=== PATIENT | female | born 1990 | race Caucasian/White ===

== ENCOUNTER 2020-08-25 07:33 | Outpatient (REF) | payer OTHER, SELFPAY ==
[2020-08-25 07:56] LABS: COVID-19 Test Negative (Negative)
== END 2020-08-25 07:34 | disposition home or self-care (01) ==
LOC: HO.LAB 07:33
PROVIDERS: Visit Provider Internal Medicine
DX: Z20.828 Contact with and (suspected) exposure to other viral communicable diseases (principal)
CPT/HCPCS: 87635; C9803

== ENCOUNTER 2020-09-15 12:30 | Outpatient (REF) | payer OTHER, SELFPAY ==
[2020-09-15 15:05] LABS: Thyroid Stimulating Hormone 0.96 uIU/mL (0.32-4.0)
[2020-09-22 12:03] LABS: FT4 by Equilib. Dialysis 1.8 ng/dL (0.9-2.2)
== END 2020-09-15 12:31 | disposition home or self-care (01) ==
LOC: HO.WFDLDS 12:30
PROVIDERS: Visit Provider Internal Medicine Endocrinology, Diabetes & Metabolism
DX: E03.9 Hypothyroidism, unspecified (principal)
CPT/HCPCS: 84439; 84443

== ENCOUNTER 2020-09-17 12:48 | Outpatient (REF) | payer OTHER, SELFPAY ==
[2020-09-17 14:42] LABS: HCG Quantitative 1664 mIU/mL
== END 2020-09-17 12:49 | disposition home or self-care (01) ==
LOC: HO.10HDL 12:48
PROVIDERS: Absent Provider Student in an Organized Health Care Education/Training Program; Visit Provider Internal Medicine Endocrinology, Diabetes & Metabolism
DX: O09.299 Supervision of pregnancy with other poor reproductive or obstetric history, unspecified trimester (principal); Z32.01 Encounter for pregnancy test, result positive
CPT/HCPCS: 84702

== ENCOUNTER 2020-09-23 08:40 | Outpatient (REF) | payer OTHER, SELFPAY ==
[2020-09-28 22:23] LABS: FT4 by Equilib. Dialysis 1.8 ng/dL (0.9-2.2)
== END 2020-09-23 08:41 | disposition home or self-care (01) ==
LOC: HO.10HDL 08:40
PROVIDERS: Visit Provider Internal Medicine Endocrinology, Diabetes & Metabolism
DX: E03.9 Hypothyroidism, unspecified (principal)
CPT/HCPCS: 84439

== ENCOUNTER 2020-11-18 10:25 | Outpatient (REF) | payer OTHER, SELFPAY ==
[2020-11-18 14:47] LABS: Free T4 (Free Thyroxine) 1.39 ng/dL (0.71-1.85); Thyroid Stimulating Hormone 0.08 uIU/mL (0.32-4.0)
== END 2020-11-18 10:26 | disposition home or self-care (01) ==
LOC: HO.10HDL 10:25
PROVIDERS: Visit Provider Internal Medicine Endocrinology, Diabetes & Metabolism
DX: E03.9 Hypothyroidism, unspecified (principal)
CPT/HCPCS: 36415; 84439; 84443

== ENCOUNTER 2020-12-08 12:35 | Outpatient (REF) | payer OTHER, SELFPAY ==
[2020-12-08 14:35] LABS: HCG Quantitative 8 mIU/mL
== END 2020-12-08 12:36 | disposition home or self-care (01) ==
LOC: HO.10HDL 12:35
PROVIDERS: Visit Provider Student in an Organized Health Care Education/Training Program
DX: O03.9 Complete or unspecified spontaneous abortion without complication (principal); Z3A.00 Weeks of gestation of pregnancy not specified
CPT/HCPCS: 36415; 84702

== ENCOUNTER 2021-01-05 12:09 | Outpatient (REF) | payer OTHER, SELFPAY ==
[2021-01-05 14:29] LABS: HCG Quantitative < 2 mIU/mL
[2021-01-05 14:46] LABS: Free T4 (Free Thyroxine) 0.99 ng/dL (0.71-1.85); Thyroid Stimulating Hormone 0.41 uIU/mL (0.32-4.0)
== END 2021-01-05 12:10 | disposition home or self-care (01) ==
LOC: HO.10HDL 12:09
PROVIDERS: Absent Provider Student in an Organized Health Care Education/Training Program; Visit Provider Internal Medicine Endocrinology, Diabetes & Metabolism
DX: O03.9 Complete or unspecified spontaneous abortion without complication (principal); E03.9 Hypothyroidism, unspecified
CPT/HCPCS: 36415; 84439; 84443; 84702

== ENCOUNTER → 2021-01-13 07:29 | Outpatient (BNVA) | payer OTHER, SELFPAY | PROVIDERS: PCP Hospitalist; Visit Provider Internal Medicine Endocrinology, Diabetes & Metabolism ==

== ENCOUNTER 2021-03-09 12:18 | Outpatient (REF) | payer OTHER, SELFPAY ==
[2021-03-09 14:22] LABS: Thyroid Stimulating Hormone 0.32 uIU/mL (0.32-4.0)
== END 2021-03-09 12:19 | disposition home or self-care (01) ==
LOC: HO.10HDL 12:18
PROVIDERS: Visit Provider Internal Medicine Endocrinology, Diabetes & Metabolism
DX: E05.00 Thyrotoxicosis with diffuse goiter without thyrotoxic crisis or storm (principal)
CPT/HCPCS: 36415; 84439; 84443

== ENCOUNTER 2021-04-29 09:05 | Outpatient (REF) | payer OTHER, SELFPAY ==
[2021-04-29 11:03] LABS: Free T4 (Free Thyroxine) 1.38 ng/dL (0.71-1.85); Thyroid Stimulating Hormone 0.36 uIU/mL (0.32-4.0)
[2021-05-03 14:22] LABS: Thyrotropin Receptor Antibody <1.00 IU/L (<=2.00)
[2021-05-04 15:37] LABS: Thyroid Stimulating Immunoglob <89 % baseline (<140)
== END 2021-04-29 09:06 | disposition home or self-care (01) ==
LOC: HO.10HDL 09:05
PROVIDERS: Visit Provider Internal Medicine Endocrinology, Diabetes & Metabolism
DX: E05.00 Thyrotoxicosis with diffuse goiter without thyrotoxic crisis or storm (principal); E03.9 Hypothyroidism, unspecified
CPT/HCPCS: 36415; 83520; 84439; 84443; 84445

== ENCOUNTER → 2021-05-01 07:35 | Outpatient (BNVA) | payer OTHER, SELFPAY | PROVIDERS: PCP Family Medicine; Visit Provider Internal Medicine Endocrinology, Diabetes & Metabolism ==

== ENCOUNTER 2021-06-24 11:38 | Outpatient (REF) | payer OTHER, SELFPAY ==
[2021-06-24 13:34] LABS: MANUAL DIFF FLAG NO
[2021-06-24 13:47] LABS: Basophils Percent Auto 0.1 % (0-2); Eosinophils Percent Auto 0.1 % (0-4); Hemoglobin 13.9 g/dl (12.0-16.0); Imm Gran Abs Auto 0.02 X10*3/uL (0.00-0.03); Imm Gran Pct Auto 0.3 % (0.0-0.4); Lymphocytes Percent Auto 28.2 % (20-40); Mean Corpuscular HGB Conc 33.9 g/dl (31.0-35.0); Mean Corpuscular Volume 91.5 fL (80-98); Monocytes Absolute Auto 0.4 X10*3/uL (0.1-1.2); Monocytes Percent Auto 5.7 % (2-11); Neutrophils Absolute Auto 4.7 X10*3/uL (2.0-8.3); Neutrophils Percent Auto 65.6 % (45-73); Platelet Count 264 X10*3/uL (160-400); Red Blood Count 4.48 X10*6/uL (4.20-5.50); Red Cell Distribution Width 12.9 % (11.0-16.0); White Blood Count 7.2 X10*3/uL (4.8-10.8)
[2021-06-24 14:08] LABS: Alanine Aminotransferase 11 U/L (0-31); Albumin Level 4.5 g/dL (3.5-5.0); Alkaline Phosphatase 58 U/L (39-117); Anion Gap 12 (12-20); Aspartate Amino Transferase 17 U/L (5-31); Bilirubin Total 1.3 mg/dL (0.0-1.0); Blood Urea Nitrogen 10 mg/dL (9-16); Calcium 9.5 mg/dL (8.4-10.2); Carbon Dioxide 27 mmol/L (22-29); Chloride 105 mmol/L (96-108); Cholesterol 195 mg/dL; Estimated Glomerular Filt Rate > 60; Glucose Fasting 87 mg/dL (60-99); HDL Cholesterol 79 mg/dL; LDL Cholesterol Calculated 103 mg/dl; Potassium 4.5 mmol/L (3.3-5.1); Sodium 139 mmol/L (135-145); Total Protein 7.2 g/dL (6.5-8.0); Triglycerides 69 mg/dL
[2021-06-24 14:30] LABS: Free T4 (Free Thyroxine) 1.25 ng/dL (0.71-1.85); Thyroid Stimulating Hormone 0.68 uIU/mL (0.32-4.0)
[2021-06-24 14:31] LABS: TSH reflex Free T4 0.68 uIU/mL (0.32-4.0)
== END 2021-06-24 11:39 | disposition home or self-care (01) ==
LOC: HO.10HDL 11:38
PROVIDERS: Absent Provider Internal Medicine Endocrinology, Diabetes & Metabolism; Visit Provider Family Medicine
DX: Z00.00 Encounter for general adult medical examination without abnormal findings (principal); E05.00 Thyrotoxicosis with diffuse goiter without thyrotoxic crisis or storm
CPT/HCPCS: 36415; 80053; 80061; 84439; 84443; 85025

== ENCOUNTER 2022-02-03 11:29 | Outpatient (REF) | payer OTHER, SELFPAY ==
[2022-02-03 14:00] LABS: Free T4 (Free Thyroxine) 1.27 ng/dL (0.71-1.85); Thyroid Stimulating Hormone 0.31 uIU/mL (0.32-4.0)
== END 2022-02-03 11:30 | disposition home or self-care (01) ==
LOC: HO.10HDL 11:29
PROVIDERS: PCP Hospitalist; Visit Provider Internal Medicine
DX: E03.8 Other specified hypothyroidism (principal); E06.3 Autoimmune thyroiditis
CPT/HCPCS: 36415; 84439; 84443

== ENCOUNTER 2022-03-22 08:22 | Outpatient (REF) | payer OTHER, SELFPAY ==
[2022-03-22 11:07] LABS: MANUAL DIFF FLAG NO
[2022-03-22 11:17] LABS: Hematocrit 31.6 % (37.0-47.0); Hemoglobin 10.7 g/dl (12.0-16.0); Mean Corpuscular HGB Conc 33.9 g/dl (31.0-35.0); Mean Corpuscular Hemoglobin 30.8 pg (27.0-33.0); Mean Corpuscular Volume 91.1 fL (80.0-98.0); Mean Platelet Volume 9.6 fL (9.4-12.3); Neutrophils Percent Auto 67.5 % (45-73); Platelet Count 303 X10*3/uL (160-400); Red Blood Count 3.47 X10*6/uL (4.20-5.50); Red Cell Distribution Width 13.4 % (11.0-16.0); White Blood Count 7.3 X10*3/uL (4.8-10.8)
[2022-03-22 11:18] LABS: Basophils Percent Auto 0.3 % (0-2); Eosinophils Percent Auto 0.6 % (0-4); Imm Gran Abs Auto 0.07 X10*3/uL (0.00-0.03); Lymphocytes Absolute Auto 1.7 X10*3/uL (1.2-4.9); Monocytes Absolute Auto 0.5 X10*3/uL (0.1-1.2); Monocytes Percent Auto 6.6 % (2-11); Neutrophils Absolute Auto 4.9 x10*3/uL (2.0-8.3)
[2022-03-22 12:00] LABS: HBsAGNum1 0.25 S/CO (0.00-0.99); HIV AB/AG Nonreactive (Nonreactive); HIV Num 1 0.11 S/CO (0.00-0.99); Hepatitis B Surface Antigen Negative (Negative); ~HepC Num1 0.09 S/CO (0.00-0.79); ~Hepatitis C Antibody Nonreactive (Nonreactive)
[2022-03-22 12:17] LABS: Syphilis Screen Nonreactive (Nonreactive)
[2022-03-22 13:30] LABS: Thyroid Stimulating Hormone 0.48 uIU/mL (0.32-4.0)
== END 2022-03-22 08:23 | disposition home or self-care (01) ==
LOC: HO.WFDLDS 08:22
PROVIDERS: Internal Medicine; Visit Provider Student in an Organized Health Care Education/Training Program
DX: O99.281 Endocrine, nutritional and metabolic diseases complicating pregnancy, first trimester (principal); E06.3 Autoimmune thyroiditis; O99.820 Streptococcus B carrier state complicating pregnancy; Z3A.09 9 weeks gestation of pregnancy
CPT/HCPCS: 36415; 84436; 84443; 85025; 86780; 86803; 87086; 87147; 87340; 87389

== ENCOUNTER 2022-07-14 14:03 | Outpatient (REF) | payer OTHER, SELFPAY ==
[2022-07-14 16:08] LABS: Free T4 (Free Thyroxine) 1.03 ng/dL (0.71-1.85); Thyroid Stimulating Hormone 0.42 uIU/mL (0.32-4.0)
== END 2022-07-14 14:04 | disposition home or self-care (01) ==
LOC: HO.LAB 14:03
PROVIDERS: Absent Provider Internal Medicine Endocrinology, Diabetes & Metabolism; PCP Hospitalist; Visit Provider Family Medicine
DX: E03.8 Other specified hypothyroidism (principal); E06.3 Autoimmune thyroiditis
CPT/HCPCS: 36415; 84439; 84443

== ENCOUNTER 2022-09-07 08:31 | Outpatient (REF) | payer OTHER, SELFPAY ==
[2022-09-07 12:56] LABS: Free T4 (Free Thyroxine) 0.92 ng/dL (0.71-1.85); Thyroid Stimulating Hormone 0.75 uIU/mL (0.32-4.0)
== END 2022-09-07 08:32 | disposition home or self-care (01) ==
LOC: HO.WFDLDS 08:31
PROVIDERS: Visit Provider Internal Medicine Endocrinology, Diabetes & Metabolism
DX: E06.3 Autoimmune thyroiditis (principal); E03.8 Other specified hypothyroidism
CPT/HCPCS: 36415; 84439; 84443

== ENCOUNTER 2022-12-07 09:11 | Outpatient (REF) | payer OTHER, SELFPAY ==
[2022-12-07 11:49] LABS: Alanine Aminotransferase 18 U/L (0-31); Albumin Level 3.9 g/dL (3.5-5.0); Alkaline Phosphatase 71 U/L (39-117); Anion Gap 13 (12-20); Aspartate Amino Transferase 17 U/L (5-31); Blood Urea Nitrogen 12 mg/dL (9-16); Calcium 9.1 mg/dL (8.4-10.2); Carbon Dioxide 24 mmol/L (22-29); Chloride 107 mmol/L (96-108); Cholesterol 154 mg/dL; Estimated Glomerular Filt Rate > 60; Glucose Fasting 87 mg/dL (60-99); HDL Cholesterol 49 mg/dL; LDL Cholesterol Calculated 86 mg/dl; Sodium 140 mmol/L (135-145); Total Protein 6.3 g/dL (6.5-8.0); Triglycerides 96 mg/dL
[2022-12-07 12:52] LABS: Free T4 (Free Thyroxine) 1.95 ng/dL (0.71-1.85); Thyroid Stimulating Hormone < 0.01 uIU/mL (0.32-4.0)
[2022-12-08 13:28] LABS: Triiodothyronine T3 Total 203 ng/dL (76-181)
== END 2022-12-07 09:12 | disposition home or self-care (01) ==
LOC: HO.WFDLDS 09:11
PROVIDERS: Visit Provider Family Medicine
DX: Z00.00 Encounter for general adult medical examination without abnormal findings (principal); E03.9 Hypothyroidism, unspecified
CPT/HCPCS: 36415; 80053; 80061; 84439; 84443; 84480

== ENCOUNTER 2023-01-14 09:21 | Outpatient (REF) | payer OTHER, SELFPAY ==
[2023-01-14 12:58] LABS: TSH reflex Free T4 0.04 uIU/mL (0.32-4.0)
[2023-01-14 14:32] LABS: Free T4 (Free Thyroxine) 0.89 ng/dL (0.71-1.85)
== END 2023-01-14 09:22 | disposition home or self-care (01) ==
LOC: HO.WFDLDS 09:21
PROVIDERS: Visit Provider Hospitalist
DX: E05.00 Thyrotoxicosis with diffuse goiter without thyrotoxic crisis or storm (principal); E03.9 Hypothyroidism, unspecified
CPT/HCPCS: 36415; 84439; 84443

== ENCOUNTER 2023-01-25 11:59 | Outpatient (REF) | payer OTHER, SELFPAY ==
[2023-01-25 14:09] LABS: Hematocrit 39.6 % (37.0-47.0); Hemoglobin 13.4 g/dl (12.0-16.0); Mean Corpuscular HGB Conc 33.8 g/dl (31.0-35.0); Mean Corpuscular Hemoglobin 30.7 pg (27.0-33.0); Mean Corpuscular Volume 90.8 fL (80.0-98.0); Mean Platelet Volume 10.2 fL (9.4-12.3); Platelet Count 281 X10*3/uL (160-400); Red Blood Count 4.36 X10*6/uL (4.20-5.50); Red Cell Distribution Width 13.7 % (11.0-16.0); White Blood Count 5.7 X10*3/uL (4.8-10.8)
== END 2023-01-25 12:00 | disposition home or self-care (01) ==
LOC: HO.WFDLDS 11:59
PROVIDERS: Visit Provider Hospitalist
DX: R53.83 Other fatigue (principal)
CPT/HCPCS: 36415; 85027

== ENCOUNTER → 2023-03-04 11:31 | Outpatient (BNVA) | payer OTHER, SELFPAY | PROVIDERS: PCP Hospitalist; Visit Provider Internal Medicine | DX: M79.18 Myalgia, other site (principal); E03.9 Hypothyroidism, unspecified; E05.00 Thyrotoxicosis with diffuse goiter without thyrotoxic crisis or storm | CPT/HCPCS: 20553; J2795 ==

== ENCOUNTER 2023-08-01 15:53 | Outpatient (AMB) | payer OTHER, SELFPAY ==
--- NOTE | 2023-08-01 15:43 | A.OFFPC_ITS ---
Vital Signs 08/01/23 15:44 Height 5 ft 3 in Weight 153 lb BMI 27.1 BP 122/60 Blood Pressure Location Lt brachial Position Sitting Pulse 70 Pulse Source Pulse Oximeter Temp 98.3 F Temp Source Oral Pulse Oximetry (%) 99 Oxygen Delivery Method Room Air Intake Visit Reasons: pulsatile tinnitus Intake Note: Patient is here with pulsatile tinnitis and mainly left ear , but also right for 6 months. Allergies No Known Allergies Allergy (Verified 08/01/23 15:49) Tobacco use date assessed: 08/01/23 Dental Screening Dental Screen Date: 08/01/23 Did you have a dental visit in the last 12 months?: Yes Did you have a dental problem in the last 6 months where you did not have access to dental care?: No Was dental information given to patient?: Patient has dentist HPI pulsatile tinnitus HPI Details 33 y/o female presents today with compla ints of pulsatile tinnitus. Pt reports symptoms for months. She denies any headaches/visual disturbances. She denies any FHx of vascular malformations. COUNT INCLUDES THE [facility] Medical History Graves disease Hypothyroidism Surgical History History of dilation and curettage Family History Maternal Uncle Substance abuse Paternal Uncle Substance abuse Family/Other Substance abuse Social History Housing: House Patient Tobacco Use Status: Never used Tobacco e-Cigarette/Vaping Use: Never Used Current occupational status: employed Cognitive needs: No Hearing needs: No Vision needs: No Questionnaire Thrive Questionnaire Date Thrive assessed: 12/08/22 ZEYAD-7 AMB Questionnaire ZEYAD-7 Date ZEYAD - 7 assessed: 12/08/22 Source: Developed by Drs. Glynn Ramirez, Jennifer Decker, Duong Joshi and colleagues, with an educational chapis from [employer]. Review of Systems Const Denies chills, Denies fatigue, Denies fever(s), Denies headache(s) and Denies weakness ENT Denies dizziness and Denies headache(s) Card Denies dyspnea Resp Denies cough, Denies dyspnea, Denies wheezing and Denies other (shortness of breath) Musc Denies numbness and Denies tingling Neuro Denies dizziness, Denies headache(s), Denies numbness, Denies tingling and Denies weakness Psych Denies anxiety and Denies depression Endo Denies fatigue Aller/Immun Denies wheezing Physical exam (Primary Care) Vital Signs: Last Vital Signs Temp 98.3 F 08/01/23 15:44 Pulse 70 08/01/23 15:44 BP 122/60 08/01/23 15:44 Pulse Ox 99 08/01/23 15:44 Oxygen Delivery Method Room Air 08/01/23 15:44 BMI result Body Mass Index 27.1 Tobacco/Smoking Status: Tobacco use Status Tobacco use date assessed 08/01/23 08/01/23 15:54 Patient Tobacco Use Status Never used Tobacco 08/01/23 15:46 e-Cigarette/Vaping Use Never Used 08/01/23 15:54 Thrive Assessment: Date of Thrive Assessment Date Thrive assessed 12/08/22 08/01/23 15:46 Const General: well developed; No acute distress Nutritional Appearance: well nourished Orientation/consciousness: patient oriented x3 [facility] Head: Yes normocephalic and Yes atraumatic Eyes General: appearance normal, both eyes and all related structures Pupils: Equal, round and reactive pupils present EOM: EOMs intact bilaterally Resp Effort & Inspection: normal respiratory effort Neuro General: patient oriented x3 and gait normal Cranial nerves: Yes Equal, round and reactive pupils present Psych Affect: normal affect Assessment and Plan Assessment & Plan (1) Pulsatile tinnitus of both ears: Code(s): H93.A3 - Pulsatile tinnitus, bilateral Plan: Neurologically?intact.??No?headaches.??No?dizziness. Heart?exam?and?carotids?with?normal?auscultation Check?CTA?head?and?neck Check?labs She?will?make?an?appointment?for?shortly?after?her?scheduled?imaging. Advised?if?she?has?any?severe?he adaches?or?neurologic?changes,?she?should?go?to?the?ED?and?she?agrees. Orders: Orders Complete Blood Count Auto Diff Today H93.A3 - Pulsatile tinnitus, bilateral, Z00.00 - Encounter for general adult medical examination without abnormal findings Triiodothyronine T3 Total Today E03.8 - Other specified hypothyroidism, E03.9 - Hypothyroidism, unspecified, E06.3 - Autoimmune thyroiditis Comprehensive Met. Panel Today H93.A3 - Pulsatile tinnitus, bilateral Thyroid Stimulating Hormone Today E03.8 - Other specified hypothyroidism, E03.9 - Hypothyroidism, unspecified, E06.3 - Autoimmune thyroiditis Free T4 (Free Thyroxine) Today E03.8 - Other specified hypothyroidism, E03.9 - Hypothyroidism, unspecified, E06.3 - Autoimmune thyroiditis Erythrocyte Sedimentation Rate Today H93.A3 - Pulsatile tinnitus, bilateral CT angio head neck Today H93.A3 - Pulsatile tinnitus, bilateral Coding Level of Care Code Est Pt Level 3 (65106) Diagnoses Pulsatile tinnitus of both ears H93.A3
[2023-08-01 15:44] VITALS: BP 122/60; PULSE 70; TEMP 36.8; O2SAT 99; BMI 27.1
== END 2023-08-01 16:19 | disposition home or self-care (01) ==
PROVIDERS: PCP Hospitalist; Visit Provider Family Medicine
DX: H93.A3 Pulsatile tinnitus, bilateral (principal)
CPT/HCPCS: 99213

== ENCOUNTER 2023-08-03 08:03 | Outpatient (REF) | payer OTHER, SELFPAY ==
[2023-08-03 11:11] LABS: MANUAL DIFF FLAG NO
[2023-08-03 11:27] LABS: Basophils Percent Auto 0.4 % (0-2); Eosinophils Percent Auto 0.6 % (0-4); Hematocrit 38.4 % (37.0-47.0); Hemoglobin 13.1 g/dl (12.0-16.0); Imm Gran Abs Auto 0.01 X10*3/uL (0.00-0.03); Imm Gran Pct Auto 0.2 % (0.0-0.4); Lymphocytes Absolute Auto 2.2 X10*3/uL (1.2-4.9); Lymphocytes Percent Auto 41.2 % (20-40); Mean Corpuscular HGB Conc 34.1 g/dl (31.0-35.0); Mean Corpuscular Hemoglobin 30.9 pg (27.0-33.0); Mean Corpuscular Volume 90.6 fL (80.0-98.0); Mean Platelet Volume 10.2 fL (9.4-12.3); Monocytes Absolute Auto 0.4 X10*3/uL (0.1-1.2); Monocytes Percent Auto 6.9 % (2-11); Neutrophils Absolute Auto 2.7 x10*3/uL (2.0-8.3); Neutrophils Percent Auto 50.7 % (45-73); Platelet Count 241 X10*3/uL (160-400); Red Blood Count 4.24 X10*6/uL (4.20-5.50); Red Cell Distribution Width 12.9 % (11.0-16.0); White Blood Count 5.3 X10*3/uL (4.8-10.8)
[2023-08-03 11:41] LABS: Alanine Aminotransferase 9 U/L (0-31); Albumin Level 4.2 g/dL (3.5-5.0); Alkaline Phosphatase 55 U/L (39-117); Anion Gap 12 (12-20); Aspartate Amino Transferase 12 U/L (5-31); Bilirubin Total 1.1 mg/dL (0.0-1.0); Blood Urea Nitrogen 11 mg/dL (9-16); Calcium 9.2 mg/dL (8.4-10.2); Carbon Dioxide 22 mmol/L (22-29); Chloride 108 mmol/L (96-108); Estimated Glomerular Filt Rate > 60; Glucose Random 88 mg/dL (60-115); Potassium 3.9 mmol/L (3.3-5.1); Sodium 138 mmol/L (135-145); Total Protein 6.9 g/dL (6.5-8.0)
[2023-08-03 11:59] LABS: Free T4 (Free Thyroxine) 0.97 ng/dL (0.71-1.85); Thyroid Stimulating Hormone 1.22 uIU/mL (0.32-4.0)
[2023-08-03 12:20] LABS: Erythrocyte Sedimentation Rate 5 MM/HR (0-20)
[2023-08-04 08:20] LABS: Triiodothyronine T3 Total 95 ng/dL (76-181)
== END 2023-08-03 08:04 | disposition home or self-care (01) ==
LOC: HO.WFDLDS 08:03
PROVIDERS: Visit Provider Family Medicine
DX: Z00.00 Encounter for general adult medical examination without abnormal findings (principal); H93.A3 Pulsatile tinnitus, bilateral; E03.9 Hypothyroidism, unspecified; E03.8 Other specified hypothyroidism; E06.3 Autoimmune thyroiditis
CPT/HCPCS: 36415; 80053; 84439; 84443; 84480; 85025; 85652

== ENCOUNTER 2023-08-05 10:20 | Outpatient (REF) | payer OTHER, SELFPAY ==
--- NOTE | ~2023-08-05 | CT_ITS ---
EXAMINATION: CT ANGIOGRAM NECK WITH CONTRAST CT ANGIOGRAM BRAIN WITH CONTRAST CLINICAL INFORMATION: Pulsatile tinnitus, bilateral. COMPARISON: None. TECHNIQUE: Test bolus sequences followed by intravenous administration 70 mL of Omnipaque 350. Helical imaging was performed in the axial plane from the thoracic inlet to the skull vertex. Delayed postcontrast imaging of the head was also performed. The data was processed at the applied technologist workstation for generation of MIP sequences. Angled MIPs and volume rendered reformatted images were also generated at an offline 3D workstation. Stenoses are assessed in accordance with NASCET criteria unless otherwise indicated. This CT examination was performed using dose optimization techniques as appropriate, variously including the following: *Automated exposure control *Adjustment of mA and/or kV according to patient size (this includes techniques or standardized protocols for targeted exams where dose is matched to indication/reason for exam; i.e. extremities or head) *Use of iterative reconstruction technique DLP: 2466 mGy-cm FINDINGS: Head CT: There is no intracranial hemorrhage, large acute infarction, or mass lesion. The ventricles are normal in size and configuration without evidence of hydrocephalus. No abnormal enhancement is seen. The dural venous sinuses are normally opacified. The extracranial structures are within normal limits. The bilateral mastoids and middle ear cavities are clear. Neck CTA: There is a normal aortic arch with no significant stenosis of the great vessel origins. The common and internal carotid arteries are normal in course and caliber. Both vertebral arteries are widely patent throughout their extracranial cervical course. Head CTA: No intracranial aneurysm is seen. The intracranial internal carotid arteries appear normal. The anterior cerebral artery, anterior communicating artery, and middle cerebral arteries appear normal. The intradural vertebral arteries and basilar artery appear normal. The posterior cerebral arteries appear normal. The posterior communicating arteries are atretic. No enlarged arteries are seen. There are no enlarged collaterals within the scalp. Non-vascular findings: The lung apices are clear. Cervical soft tissues are unremarkable. The spine is intact without significant abnormality. CT/CT angio head neck IMPRESSION: No acute intracranial abnormality. The major head and neck arteries are patent without stenosis or aneurysm. No vascular malformation identified.
[2023-08-05] MEDS: iohexoL 350 MG/ML 100 ML INFUS..BTL IV (11:32)
== END 2023-08-05 10:21 | disposition home or self-care (01) ==
LOC: HO.CT 10:20
PROVIDERS: PCP Hospitalist; Visit Provider Family Medicine
DX: H93.A3 Pulsatile tinnitus, bilateral (principal)
CPT/HCPCS: 70496; 70498; Q9967

== ENCOUNTER 2023-09-19 14:00 | Outpatient (REF) | payer OTHER, SELFPAY ==
--- NOTE | ~2023-09-19 | MM_ITS ---
EXAMINATION: MM DIAGNOSTIC DIGITAL BREAST TOMOSYNTHESIS, BILATERAL US BREAST LIMITED, LEFT MAMMOGRAPHY: CLINICAL INFORMATION: Palpable mass left breast upper outer quadrant, 33-year-old female baseline exam. COMPARISON: Mammography: None. Baseline exam. TECHNIQUE: Digital breast tomosynthesis is performed in both the craniocaudal and mediolateral oblique views along with computer-aided detection (CAD). Synthesized 2D images are generated from the tomosynthesis. FINDINGS: There are scattered areas of fibroglandular density (ACR BI-RADS breast composition Category b). There are no suspicious masses, suspicious grouped calcifications, or areas of architectural distortion in either breast. The parenchymal pattern is stable from prior exams. The region of palpable concern in the left breast upper outer quadrant has been marked by the technologist and shows no mammographic correlate. ULTRASOUND: CLINICAL INFORMATION: Palpable mass left breast upper outer quadrant, 33-year-old female baseline exam. COMPARISON: None TECHNIQUE: Targeted sonographic evaluation was performed using a high frequency linear transducer. Attention was given to the 2:00 axis left breast, in the region of palpable concern. Selected archived documentation. FINDINGS: LEFT BREAST: There is a mixture of fatty and fibroglandular tissue. No suspicious mass is seen. There is no pathologic acoustic shadowing. There is no abnormal lymph node or cystic abnormality. There is no sonographic correlate to the focus of palpable concern. MM/MM tomosynthesis diagnostic BI IMPRESSION: There is no evidence of malignancy in either breast. Palpable focus in the left breast upper outer quadrant, 2:00 axis, shows no sonographic or mammographic correlate. Recommend clinical management of the patient's complaint. Otherwise, recommend resuming routine screening mammography at age 39. OVERALL ASSESSMENT: Mammography: BI-RADS 1 - Negative Ultrasound: BI-RADS 1 - Negative RECOMMENDATION: 1. Patient should be managed based on the clinical impression. Decision to proceed with biopsy should be based on clinical grounds and degree of clinical concern. 2. Otherwise, routine annual screening mammography at age 39. This patient's information was entered into a reminder system with a target due date for their next mammogram.
== END 2023-09-19 14:01 | disposition home or self-care (01) ==
LOC: HO.MAMMO 14:00
PROVIDERS: PCP Family Medicine; Visit Provider Family Medicine
DX: N63.21 Unspecified lump in the left breast, upper outer quadrant (principal)
CPT/HCPCS: 76642; 77062; 77066

== ENCOUNTER → 2023-09-19 14:00 | Outpatient (BNV) | payer OTHER, SELFPAY | PROVIDERS: PCP Family Medicine; Visit Provider Radiology Diagnostic Radiology | DX: N63.21 Unspecified lump in the left breast, upper outer quadrant (principal) | CPT/HCPCS: 76642; 77062; 77066 ==

== ENCOUNTER 2024-10-25 08:52 | Outpatient (AMB) | payer OTHER, SELFPAY ==
--- NOTE | 2024-10-25 08:57 | A.OFFPC_ITS ---
Vital Signs 10/25/24 09:01 Height 5 ft Weight 140 lb 8 oz BMI 27.4 BP 112/58 L Blood Pressure Location Lt brachial Position Sitting Pulse 63 Pulse Source Auscultation Pulse Oximetry (%) 96 Intake Visit Reasons: Review meds Allergies No Known Allergies Allergy (Verified 10/25/24 09:02) Medication List - Last Reconciled 10/25/24 by Jayshree Seymour, DIGITAL PROJECT COORDINATOR-BC levothyroxine 75 mcg PO DAILY Tobacco use date assessed: 10/25/24 Dental Screening Dental Screen Date: 10/25/24 Did you have a dental visit in the last 12 months?: Yes Did you have a dental problem in the last 6 months where you did not have access to dental care?: No Was dental information given to patient?: Patient has dentist HPI HPI Comments History of Present Illness Details 34 y/o F with 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 Health Maintenance: Pap w/ outside provider High risk for cancer: Negative genetic testing, Recommend clinical breast exam q6mo, Annual mammo starting at age 29, MRI of breast annually starting at age 29 Mammo 09/2023 with US of L breast complete. Due for repeat, she will schedule. Flu 2023 Tdap 2021 Specialists: Endo cleared from f/u Derm screening only Cards every other year, echo q5 years, last 2021 [facility] Neuro-Ophthalmology Need for pre-dental antibiotic prophylaxis The patient is a 34-year-old female presenting to [facility] care and for a CPE. with concerns related to thyroid management. She has a history of hypothyroidism and is currently taking levothyroxine at a dosage of 75 mcg. Over the past year, she has noticed symptoms such as dry skin and hair changes, prompting concern for thyroid management optimization. She also reports experiencing pulsatile tinnitus, initially unilateral but now bilateral, noticeable particularly when lying down or during exercise. The patient reports having normal CT results for this condition last July, although she has not followed up since. Despite no definitive cause being identified during previous evaluations, the patient has occasionally experienced pressure behind her eyes, episodic headaches, and lightheadedness upon positional changes. The patient has a history of mitral valve prolapse, which causes occasional dizziness. Last echocardiogram was in 2021. She experiences limb discomfort requiring ongoing physical therapy and reports stiff joints and swelling, more prominently after alcohol consumption. States that her hands and feet are affected mostly. Specifically on the left foot on the top of her foot in between the bones as a tender area. Reports that she can not walk barefoot around the house or this increases the pain. She is currently in physical therapy for scoliosis with right shoulder pain and upper back stiffness. She had a rheumatologic workup done in the past when she was trying to conceive to multiple miscarriages. She reports a negative workup at that time. She has a family history of uterine and breast cancer and has been following recommendations for early surveillance - Reduced physical activity recently, re starting exercise to manage scoliosis and overall health. Review of Systems - ENT: Reports pulsatile tinnitus. She has not followed up with an ENT. She reports that her hearing is normal. - Neurological: Reports pressure behind the eyes, episodic headaches. - Musculoskeletal: Reports joint stiffne ss, occasional swelling, and foot discomfort. Exam: General: Well developed, well nourished, in no acute distress. Appears stated age. Head: Normocephalic, atraumatic. Eyes: Jm Daniele pupil. Conjunctivae are clear. Vision grossly normal. Ears: TMs clear AU, EACS WNL, hearing wNL Nose: Patent, without discharge. Mouth: There are no ulcers or lesions noted. No inflammation, no post nasal drip, no plaques nor exudates. Neck: Supple, no adenopathy or thyromegaly. Lungs: Clear to auscultation bilaterally. No rales, rhonchi or wheeze noted. Good air flow in all best. Heart: Regular rate and rhythm. No click, rubs or gallops are noted. mid systolic click with 2/6 murmur at apex Abdomen: Bowel sounds present in all quadrants. The abdomen is soft, nontender, with no masses or organomegaly noted. No hernias are noted. Musculoskeletal: Left foot pain w palpation dorsum of foot inbetween 3 & 4 metatarsal, otherwise Joints are nontender, without swelling, redness, or effusions. Range of motion is observed to be normal. Pulses: Peripheral pulses are equal and palpable bilaterally. Extremities: No clubbing, cyanosis nor edema is noted. Neurologic: Gait and station normal. Cranial Nerves 2-12 intact. Motor strength grossly symmetrical and intact. No sensory loss. Balance normal. Skin: No rashes, ulcers, or lesions noted. Turgor is good. Skin color is good. Hair and nails are without abnormalities. Psych: Normal eye contact, affect and mood appropriate, and normal interactions. Patient is alert and appropriate to context. Results - CT scan of head and neck conducted 2022 showed no abnormalities. Labs from 08/05/2023 reviewed Labs from today are normal, Lyme titer is pending. Plan - Repeat thyroid function tests to asses s current levothyroxine dose adequacy. - Obtain MRI/MRA for a comprehensive ass essment of pulsatile tinnitus. - Neurology consultation recommended for further evaluation of tinnitus and headaches. I will wait for the results of the imaging to come back before placing a referral. She may need neuroendocrine. - Continue follow-up with cardiology for mitral valve prolapse surveillance. - Continue physical therapy for scoliosi s and manage joint stiffness. - Monitor for potential autoimmune condi tions considering joint symptoms and family history. - Schedule mammogram in accordance with surveillance recommendations. - Monitor for any changes in joint or ca rdiac symptoms and report them during follow-up visits. - Maintain regular health check-ups and timely surveillance appointments due to familial cancer history. Continue levothyroxine dose Patient was informed and verbally consented to the use of an ambient scribe for clinic note documentation during this visit. Discussion Notes During the visit, I discussed the management of the patient's hypothyroidism, emphasizing the importance of thyroid function testing to ensure optimal levothyroxine dosing. We reviewed the persistence of her pulsatile tinnitus and decided on further imaging with an MRI/MRA for a thorough evaluation. I advised a neurology consult to explore possible causes for her symptoms, understanding the complexity of tinnitus presentations. Regarding her joint stiffness and familial cancer history, I discussed the relevance of ongoing monitoring and potential autoimmune screening given her thyroiditis history. The necessity for continued adherence to established cancer surveillance protocols was reinforced, and I recommended her to follow through on scheduling her mammogram. Plans for her physical therapy regimen were affirmed to address musculoskeletal discomfort and maintain functional capacity. This note is constructed using voice recognition software. While every effort has been made to ensure accuracy in email developer, still errors may have been included Sometimes, these errors may affect the content or meaning of the given sentence . An additional 30 minutes was spent addressing the problem(s) noted at todays visit. This includes time spent before the visit reviewing the chart, time spent during the visit, and time spent after the visit on documentation [facility] Medical History Graves disease Hypothyroidism Surgical History History of dilation and curettage Family History Maternal Uncle Substance abuse Paternal Uncle Substance abuse Family/Other Substance abuse Social History Housing: House Patient Tobacco Use Status: Never used Tobacco e-Cigarette/Vaping Use: Never Used Current occupational status: employed Cognitive needs: No Hearing needs: No Vision needs: No Questionnaire PHQ-9 Over the last 2 weeks, how often have you been bothered by any of the following problems? 1. Little interest or pleasure in doing things: not at all 2. Feeling down, depressed, or hopeless: not at all 3. Trouble falling or staying asleep, or sleeping too much: not at all 4. Feeling tired or having little energy: not at all 5. Poor appetite or overeating: not at all 6. Feeling bad about yourself - or that you are a failure or have let yourself or your family down: not at all 7. Trouble concentrating on things, such as reading the newspaper or watching television: not at all 8. Moving or speaking so slowly that other people could have noticed. Or the opposite - being so fidgety or restless that you have been moving around a lot more than usual: not at all 9. Thoughts that you would be better off or of hurting yourself in some wa y: not at all Total score: 0 Depression Screening Interpretation: Negative Depression Screening Done: Yes 65218 - PHQ-9 Billing: Yes Source: Developed by Drs. Glynn Ramirez, Jennifer Decker, Duong Joshi and colleagues, with an educational chapis from [employer]. Thrive Questionnaire Date Thrive assessed: 10/25/24 I am a: Patient What is your living situation today?: I have a steady place to live Within the past 12 months, did the food you bought not last and you didn't have the money to get more?: Never true Within the past 12 months, did you worry whether your food would run out before you got money to buy more?: Never true Do you have trouble paying for medicines?: No Do you have trouble getting transportation to medical appointments?: No Do you have trouble paying your heating and electricity bill?: No Do you have trouble taking care of your child, family member or friend?: No Do you have trouble with day-to-day activities such as bathing, preparing meals, shopping, managing finances, etc.?: No Are you currently unemployed and looking for a job?: No Are you interested in more education?: No Please select the resources that you would like help with: None Currently or been in a relationship where the following occur: No concerns reported THRIVE Score: 0 AUDIT C Alcohol Use Questionnaire (AUDIT-C) 1. How often do you have a drink containing alcohol?: 2-4 times a month 2. How many drinks containing alcohol do you have on a typical day when you are drinking?: 1 or 2 3. How often do you have six or more drinks on one occasion?: Never Total Score: 2 Score Reviewed/Action Taken: Yes ZEYAD-7 AMB Questionnaire ZEYAD-7 Date ZEYAD - 7 assessed: 10/25/24 Feeling nervous, anxious, or on edge: 0 = Not at all Not being able to stop or control worryin = Not at all Worrying too much about different things: 0 = Not at all Trouble relaxin = Not at all Being so restless that it is hard to sit still: 0 = Not at all Becoming easily annoyed or irritable: 0 = Not at all Feeling afraid as if something awful might happen: 0 = Not at all Total ZEYAD-7 score (0-4 normal; 5-9 mild; 10-14 moderate; 15-21 severe): 0 Source: Developed by Drs. Glynn Ramirez, Jennifer Decker, Duong Joshi and colleagues, with an educational chapis from [employer]. Physical exam (Primary Care) Vital Signs: Last Vital Signs Pulse 63 10/25/24 09:01 BP 112/58 L 10/25/24 09:01 Pulse Ox 96 10/25/24 09:01 BMI result Body Mass Index 27.4 Tobacco/Smoking Status: Tobacco use Status Tobacco use date assessed 08/01/23 10/25/24 09:00 Patient Tobacco Use Status Never used Tobacco 10/25/24 09:00 e-Cigarette/Vaping Use Never Used 10/25/24 09:00 PHQ-9: PHQ-9 Score PHQ-9: Total score 0 10/25/24 15:06 Depression Screening Interpretation: Negative Thrive Assessment: Date of Thrive Assessment Date Thrive assessed 10/25/24 10/25/24 09:07 Currently or been in a relationship where the following occur: No concerns reported Coding Level of Care Code Est Pt Level 4 (39731) Est Pt Prev Care 18-39y(42411) Diagnoses Encounter for general adult medical examination with abnormal findings Z00.01 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; E06.3 Hypothyroidism type: due to Mari's thyroiditis Pulsatile tinnitus of both ears H93.A3 Arthralgia of left foot M25.572 Joint pain location: foot Laterality: left Nonintractable headache, unspecified chronicity pattern, unspecified headache type R51.9 Headache type: unspecified Headache chronicity pattern: unspecified pattern Intractability: not intractable Dizziness R42 Eye pressure H57.9 Family history of breast cancer Z80.3 Family history of uterine cancer Z80.49 Additional Codes PHQ-9 - 71304 - PHQ-9 Billing: Yes ([id number]) Assessment & Plan Assessment & Plan (1) Encounter for general adult medical examination with abnormal findings: Code(s): Z00.01 - Encounter for general adult medical examination with abnormal findings (2) Hypothyroidism: Code(s): E03.9 - Hypothyroidism, unspecified Category: Medical Qualifiers: Hypothyroidism type: due to Mari's thyroiditis Qualified Code(s): E03.8 - Other specified hypothyroidism; E06.3 - Autoimmune thyroiditis (3) Pulsatile tinnitus of both ears: Code(s): H93.A3 - Pulsatile tinnitus, bilateral Category: Medical (4) Joint pain: Code(s): M25.50 - Pain in unspecified joint Category: Medical Qualifiers: Joint pain location: foot Laterality: left Qualified Code(s): M25.572 - Pain in left ankle and joints of left foot (5) Headache: Code(s): R51.9 - Headache, unspecified Category: Medical Qualifiers: Headache type: unspecified Headache chronicity pattern: unspecified pattern Intractability: not intractable Qualified Code(s): R51.9 - Headache, unspecified (6) Dizziness: Code(s): R42 - Dizziness and giddiness Category: Medical (7) Eye pressure: Code(s): H57.9 - Unspecified disorder of eye and adnexa Category: Medical (8) Family history of breast cancer: Code(s): Z80.3 - Family history of malignant neoplasm of breast Category: Medical (9) Family history of uterine cancer: Code(s): Z80.49 - Family history of malignant neoplasm of other genital organs Category: Medical Plan . Orders: Orders Hemoglobin A1c Today E03.8 - Other specified hypothyroidism, E06.3 - Autoimmune thyroiditis, H93.A3 - Pulsatile tinnitus, bilateral, M25.50 - Pain in unspecified joint Lipid Panel Today E03.8 - Other specified hypothyroidism, E06.3 - Autoimmune thyroiditis, H93.A3 - Pulsatile tinnitus, bilateral, M25.50 - Pain in unspecified joint Lyme IgG/IgM w/reflex to WB Today E03.8 - Other specified hypothyroidism, E06.3 - Autoimmune thyroiditis, H93.A3 - Pulsatile tinnitus, bilateral, M25.50 - Pain in unspecified joint Erythrocyte Sedimentation Rate Today E03.8 - Other specified hypothyroidism, E06.3 - Autoimmune thyroiditis, H93.A3 - Pulsatile tinnitus, bilateral, M25.50 - Pain in unspecified joint MR head/brain wo/w con Today H57.9 - Unspecified disorder of eye and adnexa, H93.A3 - Pulsatile tinnitus, bilateral, R42 - Dizziness and giddiness, R51.9 - Headache, unspecified Complete Blood Count no Diff Today E03.8 - Other specified hypothyroidism, E06.3 - Autoimmune thyroiditis, H93.A3 - Pulsatile tinnitus, bilateral, M25.50 - Pain in unspecified joint Comprehensive [place]. Panel Fast Today E03.8 - Other specified hypothyroidism, E06.3 - Autoimmune thyroiditis, H93.A3 - Pulsatile tinnitus, bilateral, M25.50 - Pain in unspecified joint Microalbumin, Random (w Creat) Today E03.8 - Other specified hypothyroidism, E06.3 - Autoimmune thyroiditis, H93.A3 - Pulsatile tinnitus, bilateral, M25.50 - Pain in unspecified joint TSH reflex Free T4 Today E03.8 - Other specified hypothyroidism, E06.3 - Autoimmune thyroiditis, H93.A3 - Pulsatile tinnitus, bilateral, M25.50 - Pain in unspecified joint Vitamin B12 and Folate Today E03.8 - Other specified hypothyroidism, E06.3 - Autoimmune thyroiditis, H93.A3 - Pulsatile tinnitus, bilateral, M25.50 - Pain in unspecified joint Vitamin D 25-OH Total Today E03.8 - Other specified hypothyroidism, E06.3 - Autoimmune thyroiditis, H93.A3 - Pulsatile tinnitus, bilateral, M25.50 - Pain in unspecified joint CRP High Sensitivity Today E03.8 - Other specified hypothyroidism, E06.3 - Autoimmune thyroiditis, H93.A3 - Pulsatile tinnitus, bilateral, M25.50 - Pain in unspecified joint Rheumatoid Factor Today E03.8 - Other specified hypothyroidism, E06.3 - Autoimmune thyroiditis, H93.A3 - Pulsatile tinnitus, bilateral, M25.50 - Pain in unspecified joint MR angio head wo con Today H57.9 - Unspecified disorder of eye and adnexa, H93.A3 - Pulsatile tinnitus, bilateral, R42 - Dizziness and giddiness, R51.9 - Headache, unspecified
[2024-10-25 09:01] VITALS: BP 112/58; PULSE 63; O2SAT 96; BMI 27.4
== END 2024-10-25 09:25 | disposition home or self-care (01) ==
PROVIDERS: PCP Family Medicine; Visit Provider Nurse Practitioner Family
DX: Z00.00 Encounter for general adult medical examination without abnormal findings (principal); E03.8 Other specified hypothyroidism; E06.3 Autoimmune thyroiditis; H93.A3 Pulsatile tinnitus, bilateral; M25.572 Pain in left ankle and joints of left foot; R51.9 Headache, unspecified; R42 Dizziness and giddiness; H57.9 Unspecified disorder of eye and adnexa; Z80.3 Family history of malignant neoplasm of breast; Z80.49 Family history of malignant neoplasm of other genital organs

== ENCOUNTER → 2024-10-25 08:52 | Outpatient (BNVA) | payer OTHER, SELFPAY | PROVIDERS: PCP Family Medicine; Visit Provider Nurse Practitioner Family | DX: Z00.01 Encounter for general adult medical examination with abnormal findings (principal); E06.3 Autoimmune thyroiditis; E03.8 Other specified hypothyroidism; H93.A3 Pulsatile tinnitus, bilateral; M25.572 Pain in left ankle and joints of left foot; R51.9 Headache, unspecified; R42 Dizziness and giddiness; H57.9 Unspecified disorder of eye and adnexa; Z79.899 Other long term (current) drug therapy; Z80.3 Family history of malignant neoplasm of breast; Z80.49 Family history of malignant neoplasm of other genital organs | CPT/HCPCS: 96127 ==

== ENCOUNTER 2024-10-25 09:37 | Outpatient (REF) | payer OTHER, SELFPAY ==
[2024-10-25 11:32] LABS: Hematocrit 37.7 % (37.0-47.0); Hemoglobin 12.6 g/dl (12.0-16.0); Mean Corpuscular HGB Conc 33.4 g/dl (31.0-35.0); Mean Corpuscular Volume 92.9 fL (80.0-98.0); Mean Platelet Volume 10.1 fL (9.4-12.3); Platelet Count 244 X10*3/uL (160-400); Red Blood Count 4.06 X10*6/uL (4.20-5.50); Red Cell Distribution Width 13.4 % (11.0-16.0); White Blood Count 4.7 X10*3/uL (4.8-10.8)
[2024-10-25 11:42] LABS: Estimated Average Glucose 94 mg/dL; Hemoglobin A1C 99.1872 umol/L; Hemoglobin A1c % 4.9 % (<6.0); Total Hemoglobin (HGBA1C) 3298.8242 umol/L
[2024-10-25 11:47] LABS: Rheumatoid Factor < 13.0 IU/mL (<15.0)
[2024-10-25 11:53] LABS: Alanine Aminotransferase 22 U/L (0-31); Albumin Level 4.2 g/dL (3.5-5.0); Anion Gap 9 (12-20); Aspartate Amino Transferase 18 U/L (5-31); Bilirubin Total 1.1 mg/dL (0.0-1.0); Blood Urea Nitrogen 10 mg/dL (9-16); Calcium 9.1 mg/dL (8.4-10.2); Carbon Dioxide 26 mmol/L (22-29); Chloride 109 mmol/L (96-108); Cholesterol 150 mg/dL (<200); Estimated Glomerular Filt Rate > 60; Glucose Fasting 87 mg/dL (60-99); HDL Cholesterol 67 mg/dL (>40); LDL Cholesterol Calculated 72 mg/dL (<100); Potassium 4.3 mmol/L (3.3-5.1); Sodium 140 mmol/L (135-145); Total Protein 6.8 g/dL (6.5-8.0); Triglycerides 57 mg/dL (<150)
[2024-10-25 12:09] LABS: TSH reflex Free T4 1.71 uIU/mL (0.32-4.0)
[2024-10-25 12:16] LABS: Erythrocyte Sedimentation Rate 5 MM/HR (0-20)
[2024-10-25 12:17] LABS: Folate 11.9 ng/mL (> or = 4.0); Vitamin B12 305 pg/mL (200-900)
[2024-10-25 12:22] LABS: Creatinine Urine 114.58 mg/dL; Microalbumin Urine < 5.0 mg/L
[2024-10-25 12:29] LABS: Alkaline Phosphatase 42 U/L (39-117)
[2024-10-26 18:13] LABS: Lyme Abs Screen <0.90 index
[2024-10-26 18:18] LABS: CRP High Sensitivity 0.4 mg/L
== END 2024-10-25 09:38 | disposition home or self-care (01) ==
LOC: HO.WFDLDS 09:37
PROVIDERS: Visit Provider Nurse Practitioner Family
DX: Z13.1 Encounter for screening for diabetes mellitus (principal); E03.8 Other specified hypothyroidism; E06.3 Autoimmune thyroiditis; H93.A3 Pulsatile tinnitus, bilateral; M25.50 Pain in unspecified joint
CPT/HCPCS: 36415; 80053; 80061; 82043; 82306; 82570; 82607; 82746; 83036; 84443; 85027; 85652; 86141; 86431; 86617; 86618

== ENCOUNTER → 2024-11-02 07:38 | Outpatient (BNV) | payer OTHER, SELFPAY | PROVIDERS: PCP Nurse Practitioner Family; Visit Provider Specialist | DX: H93.A3 Pulsatile tinnitus, bilateral (principal) | CPT/HCPCS: 70553 ==

== ENCOUNTER 2024-11-02 08:23 | Outpatient (REF) | payer OTHER, SELFPAY ==
--- NOTE | ~2024-11-02 | MR_ITS ---
CLINICAL HISTORY: H93.A3 - Pulsatile tinnitus, bilateral MR Angiography head without gadolinium Comparison: None Findings Intracranial internal carotid arteries are normal. Vertebrobasilar system intact. Anterior, middle, and posterior cerebral arteries are normal. Visualized cerebellar arteries are patent. IMPRESSION: Normal MRA brain This document has been electronically signed by: Scotty Wiley MD on 11/03/2024 08:23:55
--- NOTE | ~2024-11-02 | MR_ITS ---
CLINICAL HISTORY: H93.A3 - Pulsatile tinnitus, bilateral MR Brain with and without gadolinium Comparison: None Findings: No restricted diffusion. No intracranial mass or hemorrhage. Structures in the cerebellar pontine angles and IAC's are symmetric and normal in appearance. There are no prominent vascular structures. There are no areas of abnormal enhancement. No midline shift. No hydrocephalus. Vascular flow voids are intact. Orbital contents are unremarkable. The sinuses and mastoid air cells are clear. No focal bone lesion. IMPRESSION: Unremarkable exam. This document has been electronically signed by: Scotty Wiley MD on 11/03/2024 08:43:07
[2024-11-02] MEDS: gadobutroL 7.5 ML VIAL IVPUSH (09:51)
== END 2024-11-02 08:24 | disposition home or self-care (01) ==
LOC: HO.MRI 08:23
PROVIDERS: PCP Nurse Practitioner Family; Visit Provider Nurse Practitioner Family
DX: H93.A3 Pulsatile tinnitus, bilateral (principal); R51.9 Headache, unspecified; H57.9 Unspecified disorder of eye and adnexa; R42 Dizziness and giddiness
CPT/HCPCS: 70544; 70553; A9585

== ENCOUNTER 2024-11-08 14:46 | Outpatient (REF) | payer OTHER, SELFPAY | END 2024-11-08 14:47 | disposition home or self-care (01) | LOC: HO.MAMMO 14:46 | PROVIDERS: PCP Nurse Practitioner Family; Visit Provider Nurse Practitioner Family | DX: Z12.31 Encounter for screening mammogram for malignant neoplasm of breast (principal) | CPT/HCPCS: 77063; 77067 ==

== ENCOUNTER → 2024-11-08 15:00 | Outpatient (BNV) | payer OTHER, SELFPAY | PROVIDERS: PCP Nurse Practitioner Family; Visit Provider Internal Medicine | DX: Z12.31 Encounter for screening mammogram for malignant neoplasm of breast (principal) | CPT/HCPCS: 77063; 77067 ==

== ENCOUNTER 2024-12-18 08:00 | Outpatient (RCR) | payer OTHER, SELFPAY ==
--- NOTE | 2024-09-27 16:01 | MHC.PT.EP ---
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 Brooks for treatment of M542.2 Cervicalgia, G89.29 Other chronic pain, Chronic neck pain signed by Eddi Brooks 08/24/24. Pt exhibits Johny's test with (+) R rib hump, reports history of scolosis, per report >40 degree FIELDS angle (was braced in her youth). 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 She reports intolerance for prolonged computer work and has pain with prolonged sitting. Pt would benefit would benefit from attending PT once a week x 4-6 weeks to address impairments, implement HEP, and restore functional mobility tolerance to resume PLOF. Excellent rehab prognosis. Post eval, we discussed stretching program including R upper trap, R levator scap (will add scalene next visit), threading the needle, seated trunk flexion child pose stretch, SL open books (on L side to address R side tightness) was shown some self care STM re: use of theracane, self care potential re: use of TENS (will readdress more self care should patient obtain for home). Trial of ROCKTAPE applied for aide of neck pain /R periscap sx . Applied with R GH neutral, scap retraction/shoulder extension. Handout later sent via [employer] text to Aziza directly as handout was not given to her at time of leaving the office (will issue next session). Positive response verbalized post eval/instruction. Frequency and Duration: The patient will be seen 1x/week x 4-6 weeks Short Term Goals: 1. Initiate self care for neck pain/posture support. (IR: no current program in place for sx). 2. Pt will reduce neck pain by 25% for work/life balance. (IR: 6/10 at worst). 3. Improve strength by R ER RTC L>R. (IR: 4-/5). 4. Improve strength middle >lower trap 4/5 R>L side. (IR: 3/5 B, more sx on R). Group Home Goals: 1. I HEP with self care management. (IR: no program in place). 2. Strength middle<>lower trap 5/5 B. 3. Flexibility program MOD I. (IR: no program in place). 4. Neck pain improvement by 75%. 5. Walking/jog/running program MOD I with good self care management >2 miles. Treatment Plan: Modalities to reduce pain, spasms and effusion. Manual therapy to restore motion and function. Therapeutic exercise to improve strength and flexibility. Neuromuscular re-education for posture and balance. Therapeutic activities to return to functional activities of daily living. Electronically signed by: Preeti Oshea, PT, DPT Please sign and return to therapist. Thank you for your referral.
--- NOTE | 2024-12-18 09:35 | MHC.PT.DC ---
[facility] Office [place] Office [place] Office [address] Iban Veronica [address] [phone] F: [phone] F: [phone] F: [phone] F: [phone] Physical Therapy Discharge Report Diagnosis: M542.2 Cervicalgia, G89.29 Other chronic pain, Chronic neck pain signed by Eddi Brooks 08/24/24 Date of Surgery: Date of Evaluation: 09/27/24 Date of Discharge: 12/18/24 Treatments to Date: 6 Cancellations to Date: No Shows to Date: Discharge Status: Discharge Summary: 12/18/24: Pt returns to PT for last session today to review her HEP program, summarize goals moving ahead, and to refresh with active program/HEP/self-care techniques. Pt has good carryover of self management skills and has been issued a written program with band work. She has obtained a theracane and has intentions of ordering a alberto system to assist in her stretches. She has been given information about how and where to obtain a home tens machine (has not yet pursued). She notes recurrence of soreness in her back in recent days with daily activities. She has reported a decline in her compliance. Overall she has gained insight to self care. Her ROM in her C/S within a functional tolerance. She notes sx in R>L scap and upper back. Her strength in her upper body continues to require progression and she has been advised to continue use of yelllow theraband. She remains weak in her lower/middle trap/ER and appears >3/5 in these L with right slide slightly stronger ~4/5. She has been advised in body weight- body stance progressions such as supine>prone>quadriped/standing and squatting/kneeling. She continues to express some dizziness with change in position, has since had MRI of brain and eye exam. She is awaiting on a neurology consult and was last seen by cardiology and was told would be followed every three years (no upcoming appt). 11/01/24: Pt with positive response for 1/2 foam roller and over the door alberto stretch aide for UE/neck. Pt trialed with tens again for home use prn. Pt challenged with previously issued resisted ther-ex, advised slow gradual progression for home. 10/25/24: Pt reports improvement in neck pain with stretches/specific exercises at home. Increased HEP activity in recent weeks Very challenged with ER on R, tight UT musculature. Pt seen by PCP group this am, (see note) encouraged to have make appt with neurology headaches/pressure behind eyes, cardiology (hx mitral valve prolapse), MRI/MRA due to ongoing pulsatile tinnitus. 10/18/23; Pt cancelled appt today. Confirmed next week. 10/05/24: Positive response to taping/TENS/stretches. 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 Brooks for treatment of M542.2 Cervicalgia, G89.29 Other chronic pain, Chronic neck pain signed by Eddi Brooks 08/24/24. Pt exhibits Johny's test with (+) R rib hump, reports history of scolosis, per report >40 degree FIELDS angle (was braced in her youth). 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 She reports intolerance for prolonged computer work and has pain with prolonged sitting. Pt would benefit would benefit from attending PT once a week x 4-6 weeks to address impairments, implement HEP, and restore functional mobility tolerance to resume PLOF. Excellent rehab prognosis. Post eval, we discussed stretching program including R upper trap, R levator scap (will add scalene next visit), threading the needle, seated trunk flexion child pose stretch, SL open books (on L side to address R side tightness) was shown some self care STM re: use of theracane, self care potential re: use of TENS (will readdress more self care should patient obtain for home). Trial of ROCKTAPE applied for aide of neck pain /R periscap sx . Applied with R GH neutral, scap retraction/shoulder extension. Handout later sent via [employer] text to [facility] directly as handout was not given to her at time of leaving the office (will issue next session). Positive response verbalized post eval/instructionscap and Electronically signed by: Preeti Oshea, PT, DPT Please sign and return to therapist. Thank you for your referral.
== END 2025-07-11 14:59 | disposition home or self-care (01) ==
LOC: HO.PTWFD 08:00
PROVIDERS: PCP Family Medicine; Visit Provider Internal Medicine
DX: M54.2 Cervicalgia (principal); G89.29 Other chronic pain
CPT/HCPCS: 97014; 97110; 97140; 97161; 97535

== ENCOUNTER 2025-01-11 08:59 | Outpatient (AMB) | payer OTHER, SELFPAY ==
--- NOTE | 2025-01-11 09:17 | AM.OFFWIN_ITS ---
Intake Vital Signs 01/11/25 09:18 BP 108/70 Blood Pressure Location Rt brachial Position Sitting Respiration 12 Pulse 91 Pulse Source Pulse Oximeter Temp 98.1 F Temp Source Oral Pulse Oximetry (%) 99 Oxygen Delivery Method Room Air Intake Visit Reasons: CELULITUS Intake Note: Cellulitis right arm doing yard work last Tuesday Patient Tobacco Use Status: Never used Tobacco [place] Required: No Allergies No Known Allergies Allergy (Verified 01/11/25 09:27) Medication List - Last Reconciled 01/11/25 by Beata Waller CNP amoxicillin-pot clavulanate 875-125 mg 1 tab PO BID 7 days levothyroxine 75 mcg PO DAILY Do you need a note to return to daycare/school/sports/work: No HPI HPI Comments History of Present Illness Details History The patient is a 34-year-old female presenting with acute cellulitis of R forearm - The patient experienced pain, swelling , redness, and heat in the hand after working with hydrangeas. - Initial presentation was super red and swollen, which transitioned to a hard and hotter area over the last two days. - The patient has not soaked the area bu t has used warm compresses. - The patient reports no drug allergies and recently completed a course of Z-Se for chest congestion. - Tetanus vaccinations are current. - No reported yeast infections from prev ious antibiotic use. Physical Exam General: Awake, alert. No apparent distress SPeaking in full sentences R arm neurovasc intact, on forearm there is a erythematous, raised tender area with superficial excoriations. No drainage. No streaking. Discussion Notes During the visit, we discussed the likelihood of acute cellulitis in the hand due to recent gardening activity. I advised initiating treatment with antibiotics and prescribed Augmentin, to be taken twice daily for 7 days. We discussed the possible benefit of the antibiotic course in reducing inflammation and the risk of further infection. The risks and benefits of using Augmentin were covered, including the rare occurrence of yeast infections, which the patient had not experienced previously. We also discussed the importance of consistent warm compress application to alleviate symptoms. The possibility of using aspirin to reduce inflammation was considered, with specific dosing left to the patient's discretion. I ensured the patient understood to monitor symptoms during the weekend and to seek further medical advice if conditions worsen. Assessment and Plan 1. Acute cellulitis: Treatment for acute cellulitis involves prescribing oral Augmentin, complemented by warm compresses. Monitoring symptoms during the weekend for any worsening is essential. Patient Instructions - Complete the full course of Augmentin as prescribed. - Continue applying warm compresses to t he affected hand. - Monitor for worsening symptoms over . - Take aspirin if pain or inflammation p ersists, as directed. - If conditions worsen, consider seeking further medical advice. Consent Patient was informed and verbally consented to the use of an ambient scribe for clinic note documentation during this visit. [facility] Medical History Graves disease Hypothyroidism Surgical History History of dilation and curettage Family History Maternal Uncle Substance abuse Paternal Uncle Substance abuse Family/Other Substance abuse Social History Housing: House Patient Tobacco Use Status: Never used Tobacco e-Cigarette/Vaping Use: Never Used Current occupational status: employed Cognitive needs: No Hearing needs: No Vision needs: No Review of Systems Const Details: Const Denies chills, Denies fatigue, Denies fever(s), Denies headache(s) and Denies weakness ENT Denies dizziness and Denies headache(s) Card Denies chest pain, Denies lightheadedness, Denies dyspnea and Denies other (Palpitations) Resp Denies cough, Denies dyspnea, Denies wheezing and Denies other ( shortness of breath) GI Denies abdominal pain, Denies melena, Denies hematochezia, Denies change in bowel habits, Denies dyspepsia and Denies nausea Denies hematuria and Denies dysuria Musc Denies abnormal gait, Denies myalgias, Denies arthralgias, Denies numbness and Denies tingling Skin/Breast Denies rash, Denies unusual bruising and Denies wounds Neuro Denies abnormal gait, Denies dizziness, Denies headache(s), Denies memory loss, Denies numbness, Denies Sensory deficit (Neuro), Denies tingling and Denies wea kness Psych Denies anxiety, Denies depression, Denies memory loss Endo Denies cold intolerance, Denies fatigue, Denies heat intolerance, Denies polydi psia and Denies polyuria Aller/Immun Denies wheezing Physical Exam Vital Signs: Last Vital Signs Temp 98.1 F 01/11/25 09:18 Pulse 91 01/11/25 09:18 Resp 12 01/11/25 09:18 BP 108/70 01/11/25 09:18 Pulse Ox 99 01/11/25 09:18 Oxygen Delivery Method Room Air 01/11/25 09:18 Assessment & Plan Assessment & Plan Medications: New amoxicillin-pot clavulanate 875-125 mg 1 tab PO BID 7 days 14 tabs 0RF Coding Level of Care Code Est Pt Level 3 (97177)
[2025-01-11 09:18] VITALS: BP 108/70; PULSE 91; RESP 12; TEMP 36.7; O2SAT 99
== END 2025-01-11 11:01 | disposition home or self-care (01) ==
PROVIDERS: PCP Nurse Practitioner Family; Visit Provider Nurse Practitioner Family
DX: L03.113 Cellulitis of right upper limb (principal)

== ENCOUNTER → 2025-01-11 08:59 | Outpatient (BNVA) | payer OTHER, SELFPAY | PROVIDERS: PCP Nurse Practitioner Family ==

== ENCOUNTER 2025-05-29 08:25 | Outpatient (AMB) | payer OTHER, SELFPAY ==
--- NOTE | 2025-05-29 08:29 | A.OFFVIS_ITS ---
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 The symptoms started approximately six months after the of her daughter in September 2022. However, she states that possibly this may have started during the , as she had undergone a carotid ultrasound through her supervisor porcelain department, which was unremarkable. The pulsatile tinnitus manifests as a constant heartbeat sound within both ears, notably exacerbated after exercise and positional changes, but also appreciated when auscultating lung sounds at work. She also notes that she has tried adjusting her head and shoulder position, and done posterior cervical and trap trigger point injections, and uses an Invisalign mouth guard at night; however, none of these have helped to reduce the tinnitus. The patient reports episodes of dizziness upon standing, described as lightheadedness with associated visual blackouts. Cardiologic evaluations attributed these symptoms to her existing mitral valve regurgitation, but the symptoms remain unalleviated. She also notes increased periorbital swelling upon waking, which seems to correlate with sleeping prone and less healthy dietary intake. The patient has a history of neck and upper back discomfort, likely related to scoliosis and posture. Endorses headaches, which tend to occur predominantly around her menstrual period but do not present with typical migraine aura symptoms such as light or sound sensitivity. There is a background mention of brain fog, slow thought processes that have developed over recent months, and ongoing tiredness despite generally energizing morning routines. Medical History: - Mitral valve regurgitation- Followed by [facility]. 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 - Uncomplicated epidural during 2nd in September of 2022. Medications: - Levothyroxine for hypothyroidism s/p Graves' disease. 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 - Regular exercise includes intense cardio workouts such as running, Peloton biking, and low-impact workouts like barre or Pilates. - Reports drinking a significant amount of water daily- 4-5 30 fluid oz bottles of water per day. - Practices intermittent fasting, typically fasting for 16 hours. - Engages in regular sleep averaging 7-8 hours per night. Review of Systems - Otologic: Reports pulsatile tinnitus. Denies hearing loss or ringing tinnitus. - Cardiovascular: Denies palpitations or unexplained heart rate increase. - Neurological: Reports lightheadedness upon standing, brain fog, and tiredness. May have pins and needles in upper / lower extremities triggered by sustained positions /postures. Involuntary bilateral blinking with jaw closure/ Chewing. Denies seizures or loss of consciousness. - Endocrine: Reports history of hypothyroidism and hyperthyroidism. - Musculoskeletal: Reports neck and upper back discomfort. - Eyes: Reports periorbital swelling upon waking up in the morning. Denies vision changes, double vision. - Respiratory: Denies significant sinus congestion. - Gastrointestinal: Reports bloating, denies other GI symptoms. - Hematologic/Lymphatic: Denies swelling in extremities, reports periorbital swelling. Results Workup, including 2024 brain MRI with and without contrast, 2024 brain MRA without contrast, and 2022 head/neck CTA have all been read as unremarkable. The last echocardiogram was in 2021, which precedes the onset of the pulsatile tinnitus. [facility] Medical History Graves disease Hypothyroidism Surgical History History of dilation and curettage Family History Maternal Uncle Substance abuse Paternal Uncle Substance abuse Family/Other Substance abuse Social History Housing: House Patient Tobacco Use Status: Never used Tobacco e-Cigarette/Vaping Use: Never Used Current occupational status: employed Cognitive needs: No Hearing needs: No Vision needs: No Physical Exam Vital Signs: Last Vital Signs Pulse 52 05/29/25 08:30 BP 110/70 05/29/25 08:30 Pulse Ox 98 05/29/25 08:30 Oxygen Delivery Method Room Air 05/29/25 08:30 BMI result Body Mass Index 26.9 Const Orientation/consciousness: patient oriented x3 Resp Effort & Inspection: normal respiratory effort and able to speak in complete sentences Neuro Other: No palpable scalp tenderness. - Head and Neck- Palpation shows posterior neck and upper trap tightness tenderness, with negative bilateral Spurling. Bilateral TMJ tightness, mild wearing of lower teeth. - Eyes Decreased right eye palpebral fissure, eyelid movement consistent with Jm Linda Jaw Winking Syndrome. * Cranial nerves II-XII are otherwise intact, with intact EOM without nystagmus, symmetric eyebrow raise, symmetric eye closing, symmetric bilateral upper and lower facial strength, tongue protrudes midline, symmetric shoulder elevation. - Cardiovascular- No neck pulsation or JVD observed upon inspection. Heart rate-RRR. No carotid bruits appreciated. - Neurologic- No noted imbalance or difficulty during standard walking and balance tests. Normal light touch sensation throughout. - General- no swelling, no visible skin color changes General: patient oriented x3 Cognition (Neuro): normal cognition Gait exam (Neuro): Normal gait present Motor exam (neuro): 5/5 motor strength present throughout Deep tendon reflexes (DTR's): Right triceps reflex intensity grade: 2+, Left triceps reflex intensity grade: 2+, Rt Biceps (C5, C6): 2+, Left biceps reflex intensity grade: 2+, Right brachioradialis reflex intensity grade: 2+, Left brachioradialis reflex intensity grade: 2+, Right patellar reflex intensity grade: 2+ and Left patellar reflex intensity grade: 2+ Coordination: [id number] test normal, tandem gait normal and Romberg test negative Pupils: Normal pupillary reactivity/response: bilateral Psych Appearance: grossly normal Mental Status: mental status grossly normal Speech and movement: Normal speech and movement present Affect: normal affect Attitude: cooperative Thought process: Normal thought process present Assessment & Plan Assessment & Plan (1) Pulsatile tinnitus of both ears: Code(s): H93.A3 - Pulsatile tinnitus, bilateral Category: Medical (2) Chronic neck pain: Code(s): M54.2 - Cervicalgia; G89.29 - Other chronic pain Category: Medical (3) Fatigue: Comment: ESS 10 Code(s): R53.83 - Other fatigue Category: Medical Qualifiers: Fatigue type: other Qualified Code(s): R53.83 - Other fatigue (4) Jm Mckeon jaw-winking syndrome: Comment: Bilateral eyes Code(s): Q07.8 - Other specified congenital malformations of nervous system Category: Medical Plan Discussion Notes I explained to the patient that the persistent pulsatile tinnitus, along with dizziness upon standing, may have multifactorial causes, potentially involving her cervical myofascial tightness and tenderness, cardiac anomalies, hydration status, neurovascular component, possibly intracranial hypotension, or inner ear neurovascular or otologic anomalies.. I advised obtaining a follow-up echocardiogram to reassess her mitral valve regurgitation ( patient we will reach out to her supervisor porcelain department) as well as a C-spine and chest X-ray to rule out cervical spine and/or cervical rib anomalies, which might contribute to her symptoms. Discussed sleep evaluation to assess for sleep apnea. The importance of a complete electrolyte balance was discussed, advising adjusting fluid intake and possibly using electrolyte supplements to prevent any potential hyponatremia or dehydration. We also talked about monitoring her symptoms to evaluate the effectiveness of these interventions. No immediate ENT consultation was recommended unless symptoms persist significantly. Patient was informed and verbally consented to the use of an ambient scribe for clinic note documentation during this visit. Plan and patient instructions - Recommend follow-up echocardiogram for reassessment of mitral valve regurgitation to evaluate its current status and potential contribution to her dizziness. Patient will contact [facility], and if unable to reestablish care, we will initiate order. - advised to undergo chest and cervical C-spine with flexion/extension X-ray to rule out cervical anomalies and/or cervical ribs, which may explain some neurological and musculoskeletal symptoms. - Recommend home sleep study to assess for sleep apnea in setting of snoring, fatigue, brain fog. - Initiate medication intervention with a low dose of baclofen 5 mg nightly and magnesium 400 mg nightly, advised monitoring for potential drowsiness or other side effects. - Advised to adjust fluid intake to optimize electrolyte balance with suggested use of electrolyte replacement beverages or powders. - Track symptoms' response to the above treatments for further diagnostic exploration if symptoms persist. Pt seen in collaboration w/ Dr Cathie Goldstein. We will follow-up upon review of above and with a follow-up clinic visit in 3-6 months or sooner as needed. Orders: Orders XR chest 4 views Today G89.29 - Other chronic pain, H93.A3 - Pulsatile tinnitus, bilateral, M41.9 - Scoliosis, unspecified, M54.2 - Cervicalgia XR cervical spine w flex/ext Today H93.A3 - Pulsatile tinnitus, bilateral, M41.9 - Scoliosis, unspecified, M54.2 - Cervicalgia RT home sleep study Today R06.83 - Snoring, R53.83 - Other fatigue Medications: New baclofen 5 mg PO BEDTIME 30 tabs 2RF 30 days magnesium glycinate 400 mg (4 x 100 mg magnesium) PO BEDTIME 360 caps 3RF 90 days Coding Level of Care Code New Pt Level 4 (05285) Diagnoses Pulsatile tinnitus of both ears H93.A3 Chronic neck pain M54.2; G89.29 Other fatigue R53.83 Fatigue type: other Jm Ilnda jaw-winking syndrome Q07.8
[2025-05-29 08:30] VITALS: BP 110/70; PULSE 52; O2SAT 98; BMI 26.9
== END 2025-05-29 09:50 | disposition home or self-care (01) ==
LOC: HO.HSMS 08:26
PROVIDERS: PCP Nurse Practitioner Family; Visit Provider Nurse Practitioner Family
DX: H93.A3 Pulsatile tinnitus, bilateral (principal); M54.2 Cervicalgia; G89.29 Other chronic pain; R53.83 Other fatigue; Q07.8 Other specified congenital malformations of nervous system
CPT/HCPCS: 99204

== ENCOUNTER 2025-07-01 11:12 | Outpatient (REF) | payer OTHER, SELFPAY ==
--- NOTE | ~2025-07-01 | XR_ITS ---
EXAMINATION: XR CERVICAL SPINE 6 OR MORE VIEWS HISTORY: M54.2 - Cervicalgia COMPARISON: There are no prior studies available for comparison. FINDINGS: AP, lateral, bilateral oblique, and open-mouth odontoid views of the cervical spine are submitted. Flexion and extension lateral views were also obtained. Osseous mineralization is normal. Seven cervical vertebral bodies are identified maintaining normal height and alignment without evidence of fracture or subluxation. The intervertebral disc spaces are preserved. There is narrowing of the right C3-4 neural foramen secondary to degenerative change of the uncovertebral joint. There is no abnormal motion with flexion or extension. The odontoid and lateral masses of C1 are intact. There is no prevertebral soft tissue swelling. XR/XR cervical spine min 6V IMPRESSION: Narrowing of the right C3-4 neural foramen. Otherwise unremarkable examination of the cervical spine. There is no abnormal motion with flexion or extension. Electronically signed by: Glynn Tai MD 07/01/2025 12:16 PM EDT
--- NOTE | ~2025-07-01 | XR_ITS ---
EXAMINATION: XR CHEST CLINICAL INFORMATION: H93.A3 - Pulsatile tinnitus, bilateral; rule out cervical ribs. COMPARISON: None available. TECHNIQUE: 2 views of the chest were obtained. FINDINGS: The cardiac, hilar, and mediastinal contours are normal. The lungs are clear bilaterally. There is no pneumothorax or pleural effusion. There is no focal osseous or soft tissue abnormality. There is a moderate right convex scoliosis of the thoracic spine, apex at T8. Small bilateral cervical ribs are present at C7. XR/XR chest 2V IMPRESSION: 1. No active pulmonary disease. 2. There are small bilateral cervical ribs at C7. Electronically signed by: Thony Walters MD 07/01/2025 12:15 PM EDT RP
== END 2025-07-01 11:13 | disposition home or self-care (01) ==
LOC: HO.XRAY 11:12
PROVIDERS: PCP Nurse Practitioner Family; Visit Provider Nurse Practitioner Family
DX: M54.2 Cervicalgia (principal); M41.9 Scoliosis, unspecified; G89.29 Other chronic pain; H93.A3 Pulsatile tinnitus, bilateral
CPT/HCPCS: 71046; 72052

== ENCOUNTER → 2025-07-01 11:15 | Outpatient (BNV) | payer OTHER, SELFPAY | PROVIDERS: PCP Nurse Practitioner Family; Visit Provider Radiology Diagnostic Radiology | DX: M99.61 Osseous and subluxation stenosis of intervertebral foramina of cervical region (principal); H93.A3 Pulsatile tinnitus, bilateral; Q76.5 Cervical rib | CPT/HCPCS: 71046; 72052 ==

== ENCOUNTER → 2025-08-15 10:56 | Outpatient (REF) | payer OTHER, SELFPAY | LOC: HO.SL 10:56 | PROVIDERS: PCP Nurse Practitioner Family; Visit Provider Nurse Practitioner Family | DX: R53.83 Other fatigue (principal); R06.83 Snoring | CPT/HCPCS: 95806 ==

== ENCOUNTER → 2025-08-15 11:07 | Outpatient (BNV) | payer OTHER, SELFPAY | PROVIDERS: PCP Nurse Practitioner Family; Visit Provider Psychiatry & Neurology Neurology | DX: R06.83 Snoring (principal) | CPT/HCPCS: 95806 ==

== ENCOUNTER 2025-08-29 09:20 | Outpatient (AMB) | payer OTHER, SELFPAY ==
--- NOTE | 2025-08-29 09:32 | A.OFFPC_ITS ---
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 Required: No Allergies No Known Allergies Allergy (Verified 08/29/25 09:53) Medication List - Last Reconciled 08/29/25 by Jayshree Seymour, [employer]- baclofen 5 mg PO BEDTIME 30 days levothyroxine 75 mcg PO DAILY magnesium glycinate 400 mg (4 x 100 mg magnesium) PO BEDTIME 90 days Tobacco use date assessed: 08/29/25 Dental Screening Dental Screen Date: 08/29/25 Did you have a dental visit in the last 12 months?: Yes Did you have a dental problem in the last 6 months where you did not have access to dental care?: No Was dental information given to patient?: Patient has dentist HPI HPI Comments 2 History of Present Illness0 Details 35 y/o F with 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 Health Maintenance: Pap w/ outside provider High risk for cancer: Negative genetic testing, Recommend clinical breast exam q6mo, Annual mammo starting at age 29, MRI of breast annually starting at age 29 Mammo 09/2023 with US of L breast complete. Due for repeat, she will schedule. Flu 08/29/25 Tdap 2021 Specialists: Endo cleared from f/u Derm screening only Cards every other year, echo q5 years, last 2021 STATISTICIAN APPLIED Neuro-Ophthalmology Need for pre-dental antibiotic prophylaxis History of Present Illness The patient is a 35-year-old female presenting for evaluation of a sensation of a lump in her throat. Globus Sensation: - The patient reports a sensation of a l ump on the right side of her throat, which has been occurring sporadically for a while but has worsened over the last month and a half. - Symptoms typically occur with saliva a nd are more pronounced at night when lying flat on her stomach with her head turned to the right side. - She experiences a clicking sensation i n her neck and relieves the discomfort by sitting up and manually pushing on the area. - While she generally does not have trou ble swallowing food or drink, she recalls a few instances while eating where she felt unable to swallow until she pushed on her neck. - Associated symptoms include a strained voice during episodes, but she denies any fever, chills, or choking. - A prior CTA of the neck in July was reported as normal. Pulsatile Tinnitus: - The patient has a history of bilateral pulsatile tinnitus. - She has an upcoming appointment with a vascular specialist in September and has been seeing a neurologist for this condition. Cervicalgia: - The patient reports that her neck has been feeling increasingly tight lately. - She notes that her neck tightness and discomfort worsened after she stopped attending physical therapy. - Prescribed 5 mg of baclofen but this m akes her quite drowsy in the AM. - Taking magnesium 100mg that also makes her feel sedate the next AM Past Medical History - Pulsatile tinnitus, bilateral - Cervicalgia/neck tightness - History of physical therapy for neck i ssues - CTA of the neck in July 2023, repor tapan as normal Review of Systems - Constitutional: Denies fever or chills . - HEENT: Reports a sensation of a lump i n the right side of her throat, a clicking sound in her neck, and bilateral pulsatile tinnitus. Her voice becomes strained during symptomatic episodes. Denies difficulty breathing, choking, or trouble swallowing food and drink. - Musculoskeletal: Reports increased nec k tightness and discomfort since stopping physical therapy. - Neurological: Reports occasional, posi tional tingling in all extremities. Results - Imaging: CTA of the neck from July 2023 was noted to be normal. Medical Decision Making The patient is a 35-year-old female presenting with a chronic, recently worsening sensation of a lump and clicking on the right side of her throat/neck, which is positional and exacerbated by neck tightness. The differential diagnosis includes a musculoskeletal etiology, given the association with neck tightness that worsened after cessation of physical therapy. Other considerations include a mobile lymph node or a congenital cyst, although no definite mass is palpable on examination. A thyroid etiology is unlikely due to the high location of the symptoms. A CTA of the neck from July 2023 was unremarkable, but it is possible a subtle, non-threatening abnormality was not reported. Given the recent radiation exposure, a repeat CT scan is not advised at this time. The initial plan is to assess the response to a muscle relaxant (Baclofen) to address the potential musculoskeletal component. Further management will depend on the findings from her upcoming vascular consultation for pulsatile tinnitus. If symptoms persist and no further imaging is ordered by the specialist, an MRI with contrast or an ultrasound of the anterior throat will be considered. The patient also received an influenza vaccine. Plan 1. Globus like Sensation - The differential diagnosis includes a musculoskeletal issue, a lymph node, or a congenital cyst. - A trial of Baclofen 2.5 mg was prescri bed to assess for a musculoskeletal component. - The patient will follow up with her va scular specialist, Dr. Brantley, on September 19. - If symptoms do not improve and no new imaging is ordered by the specialist, we will consider ordering an MRI with contrast or an ultrasound of the anterior throat. - The patient was instructed to provide an update after her specialist appointment. 2. Pulsatile Tinnitus - The patient will proceed with the sche duled consultation with the vascular specialist, Dr. Brantley, for further evaluation. 3. Cervicalgia - A trial of Baclofen was prescribed to help alleviate neck tightness and associated discomfort. - The patient noted that her neck tightn ess worsened after discontinuing physical therapy, suggesting a musculoskeletal link. 4. Influenza Vaccination - The patient received an influenza vacc ine during the visit. Patient Instructions - Try taking the prescribed Baclofen to see if it helps with your neck tightness and throat symptoms. - Keep your appointment with the vascula r specialist, Dr. Brantley, on September 19. - Please contact our office to let us kn ow what Dr. Brantley recommends. - If your symptoms continue and no furth er tests are ordered by the specialist, we will discuss getting an MRI or ultrasound of your throat. - You received a flu shot today. Consent The patient provided verbal consent for administration of the influenza vaccine. Patient was informed and verbally consented to the use of an ambient scribe for clinic note documentation during this visit. Total time spent caring for the patient today was 30 minutes. This includes time spent before the visit reviewing the chart, time spent during the visit, and time spent after the visit on documentation, reviewing laboratory results, diagnostic imaging, medications, performing a medically necessary evaluation, counseling on diagnoses, care coordination, ordering appropriate tests, ordering appropriate medications, review of tests performed by other providers, reporting test results with the patient, communication with other healthcare providers. [facility] Medical History Graves disease Hypothyroidism Surgical History History of dilation and curettage Family History Maternal Uncle Substance abuse Paternal Uncle Substance abuse Family/Other Substance abuse Social History Housing: House Patient Tobacco Use Status: Never used Tobacco e-Cigarette/Vaping Use: Never Used Second Hand Smoke Exposure: No Current occupational status: employed Cognitive needs: No Hearing needs: No Vision needs: No Questionnaire PHQ-9 Over the last 2 weeks, how often have you been bothered by any of the following problems? 1. Little interest or pleasure in doing things: not at all 2. Feeling down, depressed, or hopeless: not at all 3. Trouble falling or staying asleep, or sleeping too much: not at all 4. Feeling tired or having little energy: not at all 5. Poor appetite or overeating: not at all 6. Feeling bad about yourself - or that you are a failure or have let yourself or your family down: not at all 7. Trouble concentrating on things, such as reading the newspaper or watching television: not at all 8. Moving or speaking so slowly that other people could have noticed. Or the opposite - being so fidgety or restless that you have been moving around a lot more than usual: not at all 9. Thoughts that you would be better off or of hurting yourself in some way: not at all Total score: 0 Depression Screening Interpretation: Negative Depression Screening Done: Yes 05831 - PHQ-9 Billing: Yes Source: Developed by Drs. Glynn Ramirez, Jennifer Decker, Duong Joshi and colleagues, with an educational chapis from [employer]. Thrive Questionnaire Date Thrive assessed: 11/13/25 I am a: Patient What is your living situation today?: I have a steady place to live Within the past 12 months, did the food you bought not last and you didn't have the money to get more?: Never true Within the past 12 months, did you worry whether your food would run out before you got money to buy more?: Never true Do you have trouble paying for medicines?: No Do you have trouble getting transportation to medical appointments?: No Do you have trouble paying your heating and electricity bill?: No Do you have trouble taking care of your child, family member or friend?: No Do you have trouble with day-to-day activities such as bathing, preparing meals, shopping, managing finances, etc.?: No Are you currently unemployed and looking for a job?: No Are you interested in more education?: No Please select the resources that you would like help with: None Currently or been in a relationship where the following occur: No concerns reported THRIVE Score: 0 ZEYAD-7 AMB Questionnaire ZEYAD-7 Date ZEYAD - 7 assessed: 08/29/25 Feeling nervous, anxious, or on edge: 0 = Not at all Not being able to stop or control worryin = Not at all Worrying too much about different things: 0 = Not at all Trouble relaxin = Not at all Being so restless that it is hard to sit still: 0 = Not at all Becoming easily annoyed or irritable: 0 = Not at all Feeling afraid as if something awful might happen: 0 = Not at all Total ZEYAD-7 score (0-4 normal; 5-9 mild; 10-14 moderate; 15-21 severe): 0 Source: Developed by Drs. Glynn Ramirez, Jennifer Decker, Duong Joshi and colleagues, with an educational chapis from [employer]. ZEYAD-7 Assessment Billing ZEYAD-7 Assessment Tool: ZEYAD-7 Assessment 45759 Physical exam (Primary Care) Vital Signs: Last Vital Signs Temp 97.2 F 08/29/25 09:37 Pulse 66 08/29/25 09:37 Resp 12 08/29/25 09:37 BP 105/70 08/29/25 09:37 Pulse Ox 99 08/29/25 09:37 Oxygen Delivery Method Room Air 08/29/25 09:37 BMI result Body Mass Index 26.9 Tobacco/Smoking Status: Tobacco use Status Tobacco use date assessed 08/29/25 08/29/25 09:35 Patient Tobacco Use Status Never used Tobacco 08/29/25 09:35 e-Cigarette/Vaping Use Never Used 08/29/25 09:35 PHQ-9: PHQ-9 Score PHQ-9: Total score 0 08/29/25 09:56 Depression Screening Interpretation: Negative Thrive Assessment: Date of Thrive Assessment Date Thrive assessed 08/29/25 08/29/25 09:35 Currently or been in a relationship where the following occur: No concerns reported Const General: no acute distress and well developed Orientation/consciousness: patient oriented x3 Limitations: no limitations HENMT Head: Yes normal to inspection Mouth: Normal oral and palatal mucosa present, lip normal, tongue normal, Normal salivary glands and ducts present, oropharynx normal, moist mucous membranes and audible dysphonia (when head is turned to the L after lying prone) Neck Neck: Yes normal visual inspection, Yes full ROM, Yes no lymphadenopathy, Yes trachea midline, Yes supple and Yes no JVD Carotids: normal carotid upstroke Lymphatic: no lymphadenopathy noted Neck images: 2 1. this is the area where she feels this sensation after lying prone and when turning head to the left. When she presses on this area she can feel a click. Neuro General: patient oriented x3 Office Procedures Flu Questionnaire Does the patient have a severe egg allergy?: No Does the patient have severe life threatening allergies?: No Does the patient have a fever or illness today?: No Has the patient ever had Guillain-Geneva Syndrome?: No Has the patient ever had any past reaction to a flu shot?: No Immunizations Fluarix [id number] (PF) 45 mcg (15 mcg x 3)/0.5 mL IM syringe Performing Provider: HELEN Edwards Performing Location: [facility] [place] [facility] Administered by: Mikhail Leone MA on 08/29/25 10:13 2 Dose Route Admin Location Dispensed Lot Number Expiration Date [facility] Help Desk Intern 0.5 mL IM Right Deltoid 0.5 mL [id number] 04/15/26 04953-653-64 Widem[employer] 2 VIS Given Date VIS Provided VIS Publication Date 08/29/25 Single Vaccine 24 Eligibility Eligibility Date Funding Source Not [facility] Eligible 08/29/25 Private Coding Level of Care Code Est Pt Level 4 (44325) Complex EM visit Add On G2211 Diagnoses Chronic neck pain M54.2; G89.29 Globus sensation R09.89 Influenza vaccination administered at current visit Z23 Additional Codes ZEYAD-7 Assessment Billing - ZEYAD-7 Assessment Tool: ZEYAD-7 Assessment 06578 ([id number]) PHQ-9 - 86020 - PHQ-9 Billing: Yes ([id number]) Assessment & Plan Assessment & Plan (1) Chronic neck pain: Code(s): M54.2 - Cervicalgia; G89.29 - Other chronic pain Category: Medical (2) Globus sensation: Code(s): R09.89 - Other specified symptoms and signs involving the circulatory and respiratory systems (3) Influenza vaccination administered at current visit: Code(s): Z23 - Encounter for immunization Plan . Orders: Orders 2 Influenza [id number] Immunization Today Z23 - Encounter for immunization
[2025-08-29 09:37] VITALS: BP 105/70; PULSE 66; RESP 12; TEMP 36.2; O2SAT 99; BMI 26.9
== END 2025-08-29 12:48 | disposition home or self-care (01) ==
LOC: HO.HMCFM 09:20
PROVIDERS: PCP Nurse Practitioner Family; Visit Provider Nurse Practitioner Family
DX: M54.2 Cervicalgia (principal); G89.29 Other chronic pain; R09.89 Other specified symptoms and signs involving the circulatory and respiratory systems; Z23 Encounter for immunization

== ENCOUNTER → 2025-08-29 09:20 | Outpatient (BNVA) | payer OTHER, SELFPAY | PROVIDERS: PCP Nurse Practitioner Family; Visit Provider Nurse Practitioner Family | DX: H93.A3 Pulsatile tinnitus, bilateral (principal); M54.2 Cervicalgia; G89.29 Other chronic pain; R09.89 Other specified symptoms and signs involving the circulatory and respiratory systems; Z23 Encounter for immunization | CPT/HCPCS: 90471; 90656; 96127 ==

== ENCOUNTER 2025-09-19 09:39 | Outpatient (AMB) | payer OTHER, SELFPAY ==
--- NOTE | 2025-09-19 10:13 | MHC.OFFVIS ---
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 States its positional worsening as well, when bending, leaning or laying down. 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 In addition she has a history of mitral valve prolapse with mitral regurg and recurrent PVCs. She has had developed pulsatile tinnitus left more so than right. It is intermittent. On occasion it does cause her to have difficulty sleeping. She now presents for vascular evaluation regarding this. Of note she is a nonsmoker nondiabetic. [facility] Medical History Graves disease Hypothyroidism Surgical History History of dilation and curettage Family History Maternal Uncle Substance abuse Paternal Uncle Substance abuse Family/Other Substance abuse Social History Housing: House Patient Tobacco Use Status: Never used Tobacco e-Cigarette/Vaping Use: Never Used Second Hand Smoke Exposure: No Current occupational status: employed Cognitive needs: No Hearing needs: No Vision needs: No Review of Systems Const All systems reviewed & are unremarkable except as noted in HPI and below Reports no additional complaints ENT Reports Normal hearing present Card Denies chest pain, Denies chest pain at rest, Denies chest pain with activity and Denies pedal edema Resp Denies cough GI Denies abdominal pain Musc Denies abnormal gait, Denies muscle cramps and Denies radiating pain into limb Skin/Breast Denies skin ulcer and Denies wounds Neuro Reports Normal hearing present and Denies abnormal gait Psych Reports no additional complaints Physical Exam Vital Signs: BMI result Body Mass Index 26.9 Const General: cooperative, healthy appearing and comfortable Orientation/consciousness: oriented to person, oriented to place and oriented to time HEENT Head: Yes normal to inspection Neck Neck: Yes normal visual inspection Carotids: no bruits Chest Chest palpation & inspection: normal inspection of the chest Resp Effort & Inspection: normal respiratory effort and able to speak in complete sentences Auscultation: clear to auscultation bilaterally, no crackles, no rales, no rhonchi and no wheezes Cardio Other: Normal carotid pulses Palpable upper extremity brachial radial ulnar pulses. Rate: regular rate Rhythm: regular rhythm Heart sounds: S1 normal heart sound present and S2 normal heart sound present Bruits: no carotid bruits Peripheral pulses: Peripheral pulses 2+ throughout GI Inspection: Yes normal to inspection Skin Wounds: no wounds Hair: normal Neuro General: oriented to person, oriented to place and oriented to time Cranial nerves: Yes CN's II-XII intact bilaterally and Yes Normal hearing present Cognition (Neuro): normal cognition Motor exam (neuro): 5/5 motor strength present throughout Extrem Other: venous exam: No significant superficial varicosities or spider telangiectasias, minimal edema General: No clubbing, No cyanosis and No edema Psych Appearance: grossly normal Mental Status: mental status grossly normal Speech and movement: Normal speech and movement present Results Reviewed Results Reviewed: 07/14/2022 - carotid ultrasound performed at [facility] was negative for any significant disease Assessment & Plan Assessment & Plan (1) Bilateral carotid artery disease: Code(s): I77.9 - Disorder of arteries and arterioles, unspecified Category: Medical Qualifiers: Carotid artery disease type: stenosis Qualified Code(s): I65.23 - Occlusion and stenosis of bilateral carotid arteries Plan: In short there is concern of pulsatile tinnitus. There may be multiple etiologies of this including her mitral regurg. We did discuss an ear cleansed regimen including ear drops. I have taken the liberty of ordering carotid ultrasound to ensure that this may not be a source of the issues. She will follow up with us after testing. Thank you for allowing us to assist in her care. If there are any questions or concerns please do not hesitate to contact us. Coding Level of Care Code New Pt Level 4 (71158) Diagnoses Bilateral carotid artery stenosis I65.23 Carotid artery disease type: stenosis
[2025-09-19 10:14] VITALS: BMI 26.9
== END 2025-09-19 10:54 | disposition home or self-care (01) ==
LOC: HO.HVS 09:40
PROVIDERS: PCP Nurse Practitioner Family; Visit Provider Surgery Vascular Surgery
DX: I65.23 Occlusion and stenosis of bilateral carotid arteries (principal)
CPT/HCPCS: 99204